=== PATIENT | female | born 1980 | race Caucasian/White ===

== ENCOUNTER 2017-01-10 13:58 | Observation (INO) | payer OTHER ==
[~2017-01-10 13:58] MED LIST: CALCIUM + D3 E1 EAC2 PO; FIBER GUMMIES PO; IBUPROFEN800 M1 PO; IBUPROFEN800 MG PO; PRENATAL 19 TA1 EAC1 PO; PRENATAL PLUS1 EACH PO; PROBIOTIC1 EA10; VITAMIN D50000 UNIT PO
== END 2017-01-10 18:10 ==
LOC: LDR 13:58
PROVIDERS: ADMIT Obstetrics & Gynecology
DX: O9A.213 Injury, poisoning and certain other consequences of external causes complicating pregnancy, third trimester (principal); Z3A.35 35 weeks gestation of pregnancy; W19.XXXA Unspecified fall, initial encounter; Z79.899 Other long term (current) drug therapy; Z88.5 Allergy status to narcotic agent; Z91.048 Other nonmedicinal substance allergy status; Z90.49 Acquired absence of other specified parts of digestive tract

== ENCOUNTER 2017-01-30 13:10 | Inpatient (IN) | payer OTHER ==
[2017-01-31 07:53] LABS: BASO % 0.1 % (0-2); HCT-HEMATOCRIT 29.7 % (34.0-49.0); HGB-HEMOGLOBIN 9.9 gm/dl (12.0-15.5); IMMATURE GRANULOCYTES ABSOLUTE 0.09 tho/cmm (0-0.03); IMMATURE GRANULOCYTES PERCENT 0.5 % (0-0.3); LYMPH % 11.9 % (20-45); LYMPH ABSOLUTE COUNT 2.1 tho/cmm (0.8-4.5); MCH (MEAN CORPUSCULAR HGB) 31.4 pg (28.0-32.0); MCHC MEAN CORPUSCULAR HGB CONC 33.3 % (32.0-36.0); MCV (MEAN CELL VOLUME) 94.3 fl (82.0-96.0); MEAN PLATELET VOLUME 12.1 cmc (9.4-12.4); MONO % 4.4 % (0-12); MONOCYTE ABSOLUTE COUNT 0.8 tho/cmm (0.0-1.2); NEUTROPHIL ABSOLUTE COUNT 14.8 tho/cmm (1.6-8.0); NEUTROPHIL-AUTOMATED 14.8 tho/cmm (1.6-8.0); NEUTROPHILS % 83.1 % (40-80); PLATELET COUNT 238 tho/cmm (150-450); RED BLOOD COUNT 3.15 mil/cmm (4.00-5.20); RED CELL DISTRIBUTION WIDTH 13.3 % (12.4-16.4); WHITE BLOOD COUNT 17.8 tho/cmm (4.0-10.0)
[2017-02-02] MEDS ORDERED: IBUPROFEN800 M1 PO (11:24)
[2017-02-02] MEDS ORDERED: IRON325 M3 PO (11:27)
== END 2017-02-02 13:25 | DRG 775 ==
LOC: LDR 13:10 → OBGE 01-31 02:39
PROVIDERS: Advanced Practice Midwife; ADMIT Advanced Practice Midwife
PROC: 10E0XZZ Delivery of Products of Conception, External Approach (ICD-10-PCS; principal; 2017-01-30)
PROC: 0UQMXZZ Repair Vulva, External Approach (ICD-10-PCS; 2017-01-30)
DX: O24.420 Gestational diabetes mellitus in childbirth, diet controlled (principal); O99.824 Streptococcus B carrier state complicating childbirth; O71.82 Other specified trauma to perineum and vulva; Z3A.38 38 weeks gestation of pregnancy; Z37.0 Single live birth; O26.852 Spotting complicating pregnancy, second trimester
CPT/HCPCS: J2540; J2590